=== PATIENT | male | born 1955 | race Caucasian/White ===

== ENCOUNTER 2020-08-09 15:42 | Emergency (ER) | payer MEDICARE, OTHER ==
[2020-08-09] MEDS ORDERED: DIPH/PERTUSS(ACELL)/TETANUS VAC/PF 0.5 ML SYR (>=10YO) IM ONE (16:48)
[2020-08-09] MEDS ORDERED: IBUPROFEN 800 MG TABLET PO ONE (16:49)
--- NOTE | 2020-08-09 16:53 | ER Document Report ---
ED Medical Screen (RME) - General Chief Complaint: Hand Burn Stated Complaint: HAND BURN Time Seen by Provider: 08/09/20 16:45 Primary Care Provider: IMAN CERVANTES MD [Primary Care Provider] - Follow up as needed TRAVEL OUTSIDE OF THE [place] IN LAST 30 DAYS: No - HPI Notes: 08/09/20 16:48 65-year-old male with a history of hypertension diabetes presents to the emergency room today for complaints of right hand pain after he accidentally spilled scalding water on his hand proximally 2 hours ago. Unsure of his last tetanus states has been well over 10 years. Patient submerge his hand in water to help with the pain. He does have blistering on the dorsal aspect of his right hand with erythema extending up to his right wrist. Has not tried any [id number] medications. Reports that he drove himself here and he would like to drive himself home. Denies any other area of injury. Denies any chest pain, shortness of breath, nausea vomiting diarrhea. I have greeted and performed a rapid initial assessment of this patient. A comprehensive ED assessment and evaluation of the patient, analysis of test results and completion of the medical decision making process will be conducted by additional ED providers. PHYSICAL EXAMINATION: GENERAL: Well-appearing, well-nourished and in mild distress. SKIN: Right hand with intact bulla to fifth and fourth phalanges, ntact bullae to right dorsal aspect of hand with white discoloration and erythema extending up to right wrist - Related Data Allergies/Adverse Reactions: Penicillins Allergy (Severe, Verified 08/09/20 16:45) Anaphylaxis Past Medical History - Past Medical History Cardiac Medical History: Reports: Hx Coronary Artery Disease, Hx Heart Attack - 2005, Hx Hypercholesterolemia, Hx Hypertension Denies: Hx Atrial Fibrillation, Hx Congestive Heart Failure, Hx Peripheral Vascular Disease, Hx Pulmonary Embolism, Hx Heart Murmur Pulmonary Medical History: Reports: Hx Bronchitis - chronic, Hx Sleep Apnea - hx CPAP, doesn't use it Denies: Hx Asthma, Hx COPD, Hx Pneumonia, Hx Respiratory Failure, Hx Tuberculosis Neurological Medical History: Denies: Hx Cerebrovascular Accident, Hx Seizures, Hx Parkinson's Disease Endocrine Medical History: Reports: Hx Diabetes Mellitus Type 2. Denies: Hx Graves' Disease, Hx Hyperthyroidism, Hx Hypothyroidism Malignancy Medical History: Denies Hx Lung Cancer GI Medical History: Reports: Hx Gastroesophageal Reflux Disease, Hx Irritable Bowel. Denies: Hx Crohn's Disease, Hx Hepatitis, Hx Hiatal Hernia, Hx Liver Failure, Hx Pancreatitis, Hx Ulcer Musculoskeltal Medical History: Reports Hx Arthritis - psoriatic arthritis, Denies Hx Fibromyalgia, Denies Hx Multiple Sclerosis, Denies Hx Muscular D ystrophy, Denies Hx Systemic Lupus Erythematosus Psychiatric Medical History: Reports: Hx Depression - not currently taking meds, Hx Post Traumatic Stress Disorder - possible Denies: Hx Bipolar Disorder, Hx Dementia, Hx Schizophrenia Traumatic Medical History: Reports: Hx Fractures - left ankle approx 1979 Infectious Medical History: Denies: Hx Hepatitis Past Surgical History: Reports: Hx Cardiac Catheterization, Hx Cardiac Surgery - stent x 1, Hx Orthopedic Surgery - 2- right knee, 1 left knee, Hx Tonsillectomy. Denies: Hx Appendectomy, Hx Bowel Surgery, Hx Cholecystectomy, Hx Colostomy, Hx Coronary Artery Bypass Graft, Hx Gastric Bypass Surgery, Hx Herniorrhaphy, Hx Open Heart Surgery, Hx Pacemaker - Immunizations Hx Diphtheria, Pertussis, Tetanus Vaccination: Yes Physical Exam - Vital signs Vitals: Temp Pulse Resp BP Pulse Ox 98.6 F 94 20 174/86 H 99 08/09/20 16:00 08/09/20 16:00 08/09/20 16:00 08/09/20 16:00 08/09/20 16:00 Course - Vital Signs Vital signs: Temp Pulse Resp BP Pulse Ox 98.6 F 94 20 174/86 H 99 08/09/20 16:00 08/09/20 16:00 08/09/20 16:00 08/09/20 16:00 08/09/20 16:00 Doctor's Discharge - Discharge Referrals: IMAN CERVANTES MD [Primary Care Provider] - Follow up as needed
--- NOTE | 2020-08-09 19:48 | ER Document Report ---
ED Burn/Smoke/Toxic Fumes - General Chief Complaint: Burn Stated Complaint: HAND BURN Time Seen by Provider: 08/09/20 16:45 Primary Care Provider: IMAN CERVANTES MD [Primary Care Provider] - Follow up as needed Mode of Arrival: Ambulatory Information source: Patient Notes: ED Medical Screen ([facility]) - General Chief Complaint: Hand Burn Stated Complaint: HAND BURN Time Seen by Provider: 08/09/20 16:45 Primary Care Provider: IMAN CERVANTES MD [Primary Care Provider] - Follow up as needed TRAVEL OUTSIDE OF THE [place] IN LAST 30 DAYS: No - HPI Notes: 08/09/20 16:48 65-year-old male with a history of hypertension diabetes presents to the emergency room today for complaints of right hand pain after he accidentally spilled scalding water on his hand proximally 2 hours ago. Unsure of his last tetanus states has been well over 10 years. Patient submerge his hand in water to help with the pain. He does have blistering on the dorsal aspect of his right hand with erythema extending up to his right wrist. Has not tried any [id number] medications. Reports that he drove himself here and he would like to drive himself home. Denies any other area of injury. Denies any chest pain, shortness of breath, nausea vomiting diarrhea. MY NOTES 65-year-old male arrives with acute burn from his right hand as his 16-year-old [employer] Dominguez dog who is blind walked in front of him as he was carrying some hot boiling collards with ham. This occurred at 1500 today. This spilled onto his right dorsum of his hand with second-degree gurrola to the dorsum of the fifth finger and ring finger and entire right hand with erosion of a 4 cm diameter thenar skin dorsally. 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 Patient reports he has a demented [id number] at home and he is trying to get home where his is at as well. Patient had a tetanus shot in the room by Lis STONE. Patient took some Motrin ibuprofen prior to arrival. TRAVEL OUTSIDE OF THE [place] IN LAST 30 DAYS: No - Related Data Allergies/Adverse Reactions: Penicillins Allergy (Severe, Verified 08/09/20 16:45) Anaphylaxis Home Medications: plavix, metformin, glimepiride, diovan, lantus Past Medical History - General Information source: Patient - Social History Smoking Status: Never Smoker Cigarette use (# per day): No Chew tobacco use (# tins/day): No Smoking Education Provided: No Frequency of alcohol use: Rare Drug Abuse: None Lives with: Family Family History: Reviewed & Not Pertinent Patient has suicidal ideation: No Patient has homicidal ideation: No - Past Medical History Cardiac Medical History: Reports: Hx Coronary Artery Disease, Hx Heart Attack - 2005, Hx Hypercholesterolemia, Hx Hypertension Denies: Hx Atrial Fibrillation, Hx Congestive Heart Failure, Hx Peripheral Vascular Disease, Hx Pulmonary Embolism, Hx Heart Murmur Pulmonary Medical History: Reports: Hx Bronchitis - chronic, Hx Sleep Apnea - hx CPAP, doesn't use it Denies: Hx Asthma, Hx COPD, Hx Pneumonia, Hx Respiratory Failure, Hx Tuberculosis Neurological Medical History: Denies: Hx Cerebrovascular Accident, Hx Seizures, Hx Parkinson's Disease Endocrine Medical History: Reports: Hx Diabetes Mellitus Type 2. Denies: Hx Graves' Disease, Hx Hyperthyroidism, Hx Hypothyroidism Malignancy Medical History: Denies Hx Lung Cancer GI Medical History: Reports: Hx Gastroesophageal Reflux Disease, Hx Irritable Bowel. Denies: Hx Crohn's Disease, Hx Hepatitis, Hx Hiatal Hernia, Hx Liver Failure, Hx Pancreatitis, Hx Ulcer Musculoskeletal Medical History: Reports Hx Arthritis - psoriatic arthritis, Denies Hx Fibromyalgia, Denies Hx Multiple Sclerosis, Denies Hx Muscular Dystrophy, Denies Hx Systemic Lupus Erythematosus Psychiatric Medical History: Reports: Hx Depression - not currently taking meds, Hx Post Traumatic Stress Disorder - possible Denies: Hx Bipolar Disorder, Hx Dementia, Hx Schizophrenia Traumatic Medical History: Reports: Hx Fractures - left ankle approx 1979 Infectious Medical History: Denies: Hx Hepatitis Past Surgical History: Reports: Hx Abdominal Surgery - hemicolectomy, Hx Cardiac Catheterization, Hx Cardiac Surgery - stent x 1, Hx Orthopedic Surgery - 2- right knee, 1 left knee, Hx Tonsillectomy. Denies: Hx Appendectomy, Hx Bowel Surgery, Hx Cholecystectomy, Hx Colostomy, Hx Coronary Artery Bypass Graft, Hx Gastric Bypass Surgery, Hx Herniorrhaphy, Hx Open Heart Surgery, Hx Pacemaker - Immunizations Hx Diphtheria, Pertussis, Tetanus Vaccination: Yes Hx Pneumococcal Vaccination: 09/16/09 Review of Systems - Review of Systems Constitutional: No symptoms reported EENT: No symptoms reported Cardiovascular: No symptoms reported Respiratory: No symptoms reported Gastrointestinal: No symptoms reported Genitourinary: No symptoms reported Male Genitourinary: No symptoms reported Musculoskeletal: No symptoms reported Skin: See HPI, Other - Gurrola to hand right-sided palmar surface within normal limits Hematologic/Lymphatic: No symptoms reported Neurological/Psychological: No symptoms reported Physical Exam - Vital signs Vitals: Temp Pulse Resp BP Pulse Ox 98.6 F 94 20 174/86 H 99 08/09/20 16:00 08/09/20 16:00 08/09/20 16:00 08/09/20 16:00 08/09/20 16:00 Interpretation: Normal - General General appearance: Appears well, Alert - HEENT Head: Normocephalic, Atraumatic Eyes: Normal Pupils: PERRL - Respiratory Respiratory status: No respiratory distress Chest status: Nontender Breath sounds: Normal Chest palpation: Normal - Cardiovascular Rhythm: Regular Heart sounds: Normal auscultation Murmur: No - Abdominal Inspection: Normal Distension: No distension Bowel sounds: Normal Tenderness: Nontender Organomegaly: No organomegaly - Rectal Prostate: Other - Deferred - Genitourinary Scrotum: Other - Deferred - Back Back: Normal, Nontender - Extremities General upper extremity: Normal inspection, Nontender, Normal color, Normal ROM, Normal temperature General lower extremity: Normal inspection, Nontender, Normal color, Normal ROM, Normal temperature, Normal weight bearing. No: Ga's sign - Neurological Neuro grossly intact: Yes Cognition: Normal Orientation: AAOx4 [place] Coma Scale Eye Opening: Spontaneous [place] Coma Scale Verbal: Oriented Phil Coma Scale Motor: Obeys Commands [place] Coma Scale Total: 15 Speech: Normal Motor strength normal: LUE, RUE, LLE, RLE Sensory: Normal - Psychological Associated symptoms: Normal affect, Normal mood - Skin Skin Temperature: Warm Skin Moisture: Dry Skin Color: Other - Gurrola to right hand dorsally with blebs around 4 cm over the dorsum of his thenar skin eroded and also over his right lateral hypothenar area around 3 cm diameter and also along the dorsum of his fifth finger approximately 4 cm x 2 cm that were drained by myself with a insulin syringe prior to bacit Course - Vital Signs Vital signs: Temp Pulse Resp BP Pulse Ox 98.3 F 79 16 161/85 H 99 08/09/20 18:42 08/09/20 18:42 08/09/20 18:42 08/09/20 18:42 08/09/20 18:42 Procedures - Needle Aspiration Right Dorsal Hand Time Completed: 19:49 Consent obtained: Yes Type of Aspiration: Fine Type: Simple Needle apsiration pre-procedure: Sterile PPE donned, Chloraprep applied, Other Anesthetic type: Other - None cc's of anesthetic: 0 Needle size: 27 Amount/type of drainage: 4 ml Number of attempts: 3 Discharge - Discharge Clinical Impression: Second degree gurrola Condition: Stable Disposition: HOME, SELF-CARE Instructions: Gurrola ([facility]) Additional Instructions: Follow-up with personal doctor this week if symptoms of infection occur. Take ibuprofen as needed for pain. You will be sent home with some pain pack medications as well. Take 1 narcotic pain medicine along with a nausea medicine every 8 hours as needed for severe pain. Otherwise take nonsteroidals. Apply bacitracin to wound twice daily with cool water cleansing twice daily. Pat dry prior to bacitracin Prescriptions: Cephalexin Monohydrate [Keflex 500 mg Capsule] 500 mg PO BID #20 capsule Referrals: IMAN CERVANTES MD [Primary Care Provider] - Follow up as needed
[2020-08-09] MEDS ORDERED: HYDROCODONE/ACETAMINOPHEN 5-325 MG (6 TAB/ER DISP) PO PRN (19:53)
[2020-08-09] MEDS ORDERED: ONDANSETRON ODT 4 MG TAB (6 TAB/ER DISP) PO PRN (19:54)
[2020-08-09 20:18] VITALS: BP 114/88
== END 2020-08-09 20:21 | disposition home or self-care (01) ==
LOC: ER 15:42
DX: T23.231A Burn of second degree of multiple right fingers (nail), not including thumb, initial encounter (principal); T23.251A Burn of second degree of right palm, initial encounter; X10.1XXA Contact with hot food, initial encounter; Y93.89 Activity, other specified; I25.10 Atherosclerotic heart disease of native coronary artery without angina pectoris; I10 Essential (primary) hypertension; I25.2 Old myocardial infarction; E11.9 Type 2 diabetes mellitus without complications; Z79.02 Long term (current) use of antithrombotics/antiplatelets; Z79.4 Long term (current) use of insulin; Z79.899 Other long term (current) drug therapy; Z95.5 Presence of coronary angioplasty implant and graft; Z23 Encounter for immunization
CPT/HCPCS: 99284; 90471; 90715; A9270 ×3